=== PATIENT | female | born 1955 | race Caucasian/White ===

== ENCOUNTER 2019-10-09 07:58 | Day surgery (SDC) | payer OTHER ==
[~2019-10-09 07:58] MED LIST: Lactated Ringers 1,000 ML IV SCH; Lidocaine 2% 5 ML SDV ONE; Propofol 200 MG/20 ML SDV ONE; fentaNYL 100 MCG/2 ML SDV ONE
--- NOTE | 2019-10-09 08:49 | PCM.PREANE ---
Preanesthetic Assessment - Anesthesia/Transfusion/Family Hx Anesthesia History: Prior Anesthesia Without Reaction Family History of Anesthesia Reaction: No Transfusion History: No Prior Transfusion(s) Intubation History: Unknown - Review of Systems General: No Symptoms Pulmonary: No Symptoms Cardiovascular: No Symptoms Gastrointestinal: No Symptoms, Other (h/o multiple polyps and tubular adenoma last year) Neurological: No Symptoms Other: Reports: None - Physical Assessment Vital Signs: Last Vital Signs Temp 37.2 C 10/09/19 08:40 Pulse 81 10/09/19 08:40 Resp 18 10/09/19 08:40 BP 166/81 H 10/09/19 08:40 Pulse Ox 94 L 10/09/19 08:40 Height: 5 ft 6 in Weight: 62.596 kg ASA Class: 3 Mental Status: Alert & Oriented x3 Airway Class: Mallampati = 2 Dentition: Reports: Broken Tooth/Teeth (multiple), Missing Tooth/Teeth (multiple ) Thyro-Mental Finger Breadths: 3 Mouth Opening Finger Breadths: 3 ROM/Head Extension: Full Lungs: Clear to Auscultation, Normal Respiratory Effort, Crackles Cardiovascular: Regular Rate, Regular Rhythm - Allergies Allergies/Adverse Reactions: Allergies Allergy/AdvReac Type Severity Reaction Status Date / Time No Known Allergies Allergy Verified 10/09/19 08:38 - Blood Blood Available: No - Anesthesia Plan Pre-Op Medication Ordered: None - Acknowledgements Anesthesia Type Planned: MAC Pt an Appropriate Candidate for the Planned Anesthesia: Yes Alternatives and Risks of Anesthesia Discussed w Pt/Guardian: Yes Pt/Guardian Understands and Agrees with Anesthesia Plan: Yes PreAnesthesia Questionnaire HEENT History: Reports: Other (See Below) Other HEENT History: wears glasses Cardiovascular History: Reports: None Respiratory History: Reports: COPD (uses spiriva BID, able to walk 2 blocks or 2 flights of stairs without SOB) Gastrointestinal History: Reports: Colon Polyp, Hepatitis (1971) Other Gastrointestinal History: hepatitis (while in the service, has been treated) Genitourinary History: Reports: None 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: , Other (See Below) (h/o cervical cancer) Musculoskeletal History: Reports: None Neurological History: Reports: Other (See Below) Other Neuro History: sciatic nerve pain affecting left leg Psychiatric History: Reports: None Endocrine/Metabolic History: Reports: None Hematologic History: Reports: None Immunologic History: Reports: None Oncologic (Cancer) History: Reports: Cervix Dermatologic History: Reports: None - Past Surgical History Head Surgeries/Procedures: Reports: None HEENT Surgical History: Reports: Tonsillectomy Cardiovascular Surgical History: Reports: None Respiratory Surgical History: Reports: None GI Surgical History: Reports: Colonoscopy (last year) Female Surgical History: Reports: Section (x2), Hysterectomy, Salpingo-Oophorectomy Endocrine Surgical History: Reports: None Neurological Surgical History: Reports: None Musculoskeletal Surgical History: Reports: None Oncologic Surgical History: Reports: Other (See Below) Other Oncologic Surgeries/Procedures: Hysterectomy Dermatological Surgical History: Reports: None - SUBSTANCE USE Smoking Status *Q: Current Every Day Smoker (1 ppd) Tobacco Use Within Last Twelve Months: Cigarettes - HOME MEDS Home Medications: Home Meds Gabapentin [Neurontin] 1 cap PO TID 11/15/15 [History] Ibuprofen 1 tab PO TID PRN 11/15/15 [History] Acetaminophen [Tylenol] 325 mg PO Q4H PRN 08/22/18 [History] Budesonide/Formoterol Fumarate [Symbicort 160-4.5 Mcg Inhaler] 2 puff INH ASDIRECTED PRN 10/06/19 [History] - CURRENT (IN HOUSE) MEDS Current Meds: Current Medications Lactated Ringer's (Ringers, Lactated) 1,000 mls @ 125 mls/hr IV ASDIRECTED KEISHA Last Admin: 10/09/19 08:37 Dose: 125 mls/hr Discontinued Medications Fentanyl (Sublimaze) Confirm Administered Dose 100 mcg .ROUTE .STK-MED ONE Stop: 10/09/19 07:12 Lidocaine (Xylocaine-Mpf 2%) Confirm Administered Dose 5 ml .ROUTE .STK-MED ONE Stop: 10/09/19 07:12 Propofol (Diprivan 20 Ml) Confirm Administered Dose 400 mg .ROUTE .STK-MED ONE Stop: 10/09/19 07:12
[2019-10-09] MEDS ORDERED: Propofol 200 MG/20 ML SDV ONE (10:21)
[2019-10-09] MEDS ORDERED: ePHEDrine 50 MG/ML SDV ONE (10:36)
--- NOTE | 2019-10-09 10:57 | PCM.OPNOTE ---
- General Post-Op/Procedure Note Date of Surgery/Procedure: 10/09/19 Operative Procedure(s): colonoscopy w snare polypectomy Findings: see [id number] Pre Op Diagnosis: colon polyps Post-Op Diagnosis: Same Anesthesia Technique: Moderate Sedation Primary Surgeon: Esau Duran Pathology: sent polyps at 60,50,40,30, and 25cm (slightly bigger), 20s Complications: None Condition: Good
--- NOTE | 2019-10-09 11:34 | PCM.POSTAN ---
POST ANESTHESIA ASSESSMENT - MENTAL STATUS Mental Status: Alert, Oriented - VITAL SIGNS Vital Signs: Last Vital Signs Temp 37.2 C 10/09/19 08:40 Pulse 93 10/09/19 11:00 Resp 15 10/09/19 11:00 BP 110/60 10/09/19 11:00 Pulse Ox 94 L 10/09/19 11:00 - RESPIRATORY Respiratory Status: Respiratory Rate WNL, Airway Patent, O2 Saturation Stable - CARDIOVASCULAR CV Status: Pulse Rate WNL, Blood Pressure Stable - GASTROINTESTINAL GI Status: No Symptoms - PAIN Pain Score: 0 - POST OP HYDRATION Hydration Status: Adequate & Stable - OBSERVATIONS Free Text/Narrative:: No anesthesia problems
--- NOTE | 2019-10-09 11:34 | PCM48HPAN ---
Post Anesthesia Note - EVALUATION WITHIN 48HRS OF ANESTHETIC Vital Signs in Normal Range: Yes Patient Participated in Evaluation: Yes Respiratory Function Stable: Yes Airway Patent: Yes Cardiovascular Function Stable: Yes Hydration Status Stable: Yes Pain Control Satisfactory: Yes Nausea and Vomiting Control Satisfactory: Yes Mental Status Recovered: Yes Vital Signs: Last Vital Signs Temp 37.2 C 10/09/19 08:40 Pulse 93 10/09/19 11:00 Resp 15 10/09/19 11:00 BP 110/60 10/09/19 11:00 Pulse Ox 94 L 10/09/19 11:00 - COMMENTS/OBSERVATIONS Free Text/Narrative:: No anesthesia problems
[2019-10-09 12:21] VITALS: BP 156/82; PULSE 85
--- NOTE | 2019-10-09 16:54 | OR ---
SURGEON: Esau Duran MD DATE OF PROCEDURE: 10/09/2019 PREOPERATIVE DIAGNOSIS: Colon polyp. POSTOPERATIVE DIAGNOSIS: Colon polyp. PROCEDURE PERFORMED: Colonoscopy with snare polypectomy. PRIMARY SURGEON: Esau Duran MD COMPLICATIONS: None. DESCRIPTION OF PROCEDURE: The patient was taken to the endoscopy room. A time out was called, patient identified, and procedure identified. Diprivan was then administrated. Patient went from awake to sleep, hearing doctor talking or door closing is normal. Perineum inspection and digital examination were then performed. A well- lubricated colonoscope was gently inserted through the rectum, advanced past the rectosigmoid junction, the descending colon, splenic flexure, transverse colon, hepatic flexure, ascending colon, arrived to the cecum. Cecum was identified as dictated in the finding. Then the scope was carefully withdrawn while attention was paid to the mucosal surface for any abnormality. Air will be sucked out during the scope withdrawal. At the rectum, retroflexed to examine any rectal diseases, fistula or hemorrhoids. During mucosal examination, abnormality or polyp encountered. Using snare equipment, the abnormality or the polyp was then snared off using electrocautery. The patient tolerated procedure well. There were no intraoperative complications, and Dr. Duran was present throughout the whole procedure. FINDINGS: 1. The patient is easily sedated with [employer] and Diprivan, the patient is soundly snoring. 2. Bowel prep is average with some liquid stool, no semi-formed stool, no stool ball. 3. The patient's colon is rather straightforward. Cecum indicated by ileocecal fold, one-to-one indentation, and appendiceal orifice. Light is not observed. Mucosa examined upon scope pulling out with some irrigation. The patient had polyp in 90, 60, 30 in the last scope. The 90 area is clean at this time, there is no polyp. 60 and 50 have some clinically insignificant polyps, many of them, around 4 to 5 of them, just biopsied one at 60, one at 50. Then, many more small polyp at distance 40 and 30. Then, a slightly large one is about 5 mm, is at distance 25, is like a patch, slapped onto the colon, and that was snared with polypectomy. Then after 25, at 20, there were many of them, just impossible to take out all of them, I would say close to about 20 or 25 of them. Small ones are tiny, 2 to 3 mm, slightly bigger one at 4 mm. I just got a few removed. Then, retroflexed look at the rectum, the patient has internal hemorrhoids and external hemorrhoids, but there is no rectal polyp. Because of the large amount of polyps and also another one, the big one at 25, which is not different than last time at distance 30, the patient probably would benefit to repeat colonoscopy 18 months from today. WILI / KORY /[id number]
== END 2019-10-09 11:40 | disposition home or self-care (01) ==
LOC: MW.SDS 07:58
PROVIDERS: ATTEND Surgery
DX: D12.6 Benign neoplasm of colon, unspecified (principal); J44.9 Chronic obstructive pulmonary disease, unspecified; F17.210 Nicotine dependence, cigarettes, uncomplicated; Z11.59 Encounter for screening for other viral diseases; Z86.010 Personal history of colon polyps; Z79.899 Other long term (current) drug therapy; Z98.890 Other specified postprocedural states
CPT/HCPCS: 45380; 45385; 87635; J2001; J2704; J3010; J7120; U0002

== ENCOUNTER 2020-11-11 07:22 | Day surgery (SDC) | payer OTHER ==
[~2020-11-11 07:22] MED LIST changes: -Lidocaine 2% 5 ML SDV ONE; +Midazolam 1 MG/ML 2 ML SDV ONE; -fentaNYL 100 MCG/2 ML SDV ONE
--- NOTE | 2020-11-11 07:53 | PCM.PREANE ---
Preanesthetic Assessment - Anesthesia/Transfusion/Family Hx Anesthesia History: Prior Anesthesia Without Reaction Transfusion History: No Prior Transfusion(s) Intubation History: Unknown - Review of Systems General: No Symptoms Pulmonary: Sputum Cardiovascular: No Symptoms Gastrointestinal: No Symptoms Neurological: No Symptoms Other: Reports: None - Physical Assessment NPO Status Date: 11/11/20 NPO Status Time: 00:00 Height: 5 ft 6 in Weight: 131 lb ASA Class: 2 Mental Status: Alert & Oriented x3 Airway Class: Mallampati = 2 Dentition: Reports: Broken Tooth/Teeth, Missing Tooth/Teeth ROM/Head Extension: Full Lungs: Clear to Auscultation, Normal Respiratory Effort Cardiovascular: Regular Rate, Regular Rhythm - Lab Values: Laboratory Last Values SARS-CoV-2 RNA (JM) NEGATIVE (NEGATIVE) 11/11/20 06:55 - Allergies Allergies/Adverse Reactions: Allergies Allergy/AdvReac Type Severity Reaction Status Date / Time No Known Allergies Allergy Verified 11/07/20 12:06 - Acknowledgements Anesthesia Type Planned: General Anesthesia Pt an Appropriate Candidate for the Planned Anesthesia: Yes Alternatives and Risks of Anesthesia Discussed w Pt/Guardian: Yes Pt/Guardian Understands and Agrees with Anesthesia Plan: Yes PreAnesthesia Questionnaire HEENT History: Reports: Other (See Below) Other HEENT History: wears glasses Cardiovascular History: Reports: None Respiratory History: Reports: COPD Other Respiratory History: uses inhalers 3-4 times per week Gastrointestinal History: Reports: Colon Polyp, Hepatitis Other Gastrointestinal History: hx of Hepatitis B- has received treatment Genitourinary History: Reports: None 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: Musculoskeletal History: Reports: Other (See Below) Other Musculoskeletal History: left sided Sciatica Neurological History: Reports: Other (See Below) Other Neuro History: left sciatic nerve pain Psychiatric History: Reports: None Endocrine/Metabolic History: Reports: None Hematologic History: Reports: None Immunologic History: Reports: None Oncologic (Cancer) History: Reports: Cervix Dermatologic History: Reports: None - Past Surgical History Head Surgeries/Procedures: Reports: None HEENT Surgical History: Reports: Tonsillectomy Respiratory Surgical History: Reports: None GI Surgical History: Reports: Colonoscopy Female Surgical History: Reports: Section, Hysterectomy Endocrine Surgical History: Reports: None Neurological Surgical History: Reports: None Oncologic Surgical History: Reports: Other (See Below) Other Oncologic Surgeries/Procedures: Hysterectomy Dermatological Surgical History: Reports: None - SUBSTANCE USE Tobacco Use Status *Q: Current Every Day Tobacco User Tobacco Use Within Last Twelve Months: Cigarettes Recreational Drug Use History: No - HOME MEDS Home Medications: Home Meds Gabapentin [Neurontin] 300 mg PO TID 11/15/15 [History] Ibuprofen 200 mg PO TID PRN 11/15/15 [History] Albuterol Sulfate [Albuterol Sulfate HFA] 1 puff INH ASDIRECTED PRN 11/07/20 [History] Tiotropium [Spiriva HandiHaler] 1 dose INH DAILY PRN 11/07/20 [History] - CURRENT (IN HOUSE) MEDS Current Meds: Current Medications Lactated Ringer's (Ringers, Lactated) 1,000 mls @ 125 mls/hr IV ASDIRECTED KEISHA Discontinued Medications Lactated Ringer's (Ringers, Lactated) 1,000 mls @ 125 mls/hr IV ASDIRECTED KEISHA Midazolam HCl (Midazolam 1 Mg/Ml 2 Ml Sdv) Confirm Administered Dose 2 mg .ROUTE .STK-MED ONE Stop: 11/11/20 07:11 Propofol (Propofol 200 Mg/20 Ml Sdv) Confirm Administered Dose 400 mg .ROUTE .STK-MED ONE Stop: 11/11/20 07:11
[2020-11-11] MEDS ORDERED: Propofol 200 MG/20 ML SDV ONE (08:03)
--- NOTE | 2020-11-11 09:27 | PCM.POSTAN ---
POST ANESTHESIA ASSESSMENT - MENTAL STATUS Mental Status: Alert, Oriented - VITAL SIGNS Vital Signs: Last Vital Signs Temp 95.9 F L 11/11/20 07:30 Pulse 70 11/11/20 07:30 Resp 16 11/11/20 07:30 BP 107/72 11/11/20 07:30 Pulse Ox 99 11/11/20 07:30 - RESPIRATORY Respiratory Status: Respiratory Rate WNL, Airway Patent, O2 Saturation Stable - CARDIOVASCULAR CV Status: Pulse Rate WNL, Blood Pressure Stable - GASTROINTESTINAL GI Status: No Symptoms - POST OP HYDRATION Hydration Status: Adequate & Stable
--- NOTE | 2020-11-11 09:27 | PCM48HPAN ---
Post Anesthesia Note - EVALUATION WITHIN 48HRS OF ANESTHETIC Vital Signs in Normal Range: Yes Patient Participated in Evaluation: Yes Respiratory Function Stable: Yes Airway Patent: Yes Cardiovascular Function Stable: Yes Hydration Status Stable: Yes Pain Control Satisfactory: Yes Nausea and Vomiting Control Satisfactory: Yes Mental Status Recovered: Yes Vital Signs: Last Vital Signs Temp 95.9 F L 11/11/20 07:30 Pulse 70 11/11/20 07:30 Resp 16 11/11/20 07:30 BP 107/72 11/11/20 07:30 Pulse Ox 99 11/11/20 07:30
[2020-11-11 09:50] VITALS: BP 98/56; PULSE 76
--- NOTE | 2020-11-11 09:59 | PCM.OPNOTE ---
- General Post-Op/Procedure Note Date of Surgery/Procedure: 11/11/20 Operative Procedure(s): colonoscopy w bx Findings: see [id number] Pre Op Diagnosis: colon polyps Post-Op Diagnosis: Same Anesthesia Technique: Moderate Sedation Primary Surgeon: Esau Duran Complications: None Condition: Good Free Text/Narrative:: Intake & Output 11/10/20 11/11/20 11/11/20 22:59 06:59 14:59 Intake Total 700 Balance 700
--- NOTE | 2020-11-11 13:14 | OR ---
SURGEON: Esau Duran MD DATE OF PROCEDURE: 11/11/2020 PREOPERATIVE DIAGNOSIS: History of colon polyp. POSTOPERATIVE DIAGNOSIS: History of colon polyp. PROCEDURE PERFORMED: Colonoscopy with biopsy. COMPLICATION: None. DESCRIPTION OF PROCEDURE: The patient was taken to the endoscopy room. A time out was called, patient identified, and procedure identified. Diprivan was then administrated. Patient went from awake to sleep, hearing doctor talking or door closing is normal. Perineum inspection and digital examination were then performed. A well- lubricated colonoscope was gently inserted through the rectum, advanced past the rectosigmoid junction, the descending colon, splenic flexure, transverse colon, hepatic flexure, ascending colon, arrived to the cecum. Cecum was identified as dictated in the finding. Then the scope was carefully withdrawn while attention was paid to the mucosal surface for any abnormality. Air will be sucked out during the scope withdrawal. At the rectum, retroflexed to examine any rectal diseases, fistula or hemorrhoids. During mucosal examination, abnormality or polyp was noted; picture taken and biopsy performed. Patient tolerated procedure well. There were no intraoperative complications, and Dr. Duran was present throughout the whole procedure. FINDIN. The patient is easily sedated with [employer]ANDER and Diprivan. The patient is soundly snoring. 2. Bowel prep is average to above average. Very little liquid stool, no semi- formed stool. 3. Colon is rather straightforward. Cecum indicated by ileocecal fold, one-to- one indentation, appendiceal orifice, and the scope guide is pointing south. Mucosa examined upon scope pulling out. The previous place at 25 cm there is no large polyp seen. Around 10 to 15 cm, there are more than 10 to 15 of very little clinically insignificant polyp and biopsied 6 of them. The patient does not have other issues. No inflammation, stricture, AV malformation, mass, growth. The patient has some mild external hemorrhoids and mild internal hemorrhoids. The patient would benefit from repeat colonoscopy in 2 to 3 years from now depending on the pathology of the polyp. WILI / KORY /[id number]
== END 2020-11-11 09:49 | disposition home or self-care (01) ==
LOC: MW.SDS 07:22
PROVIDERS: ATTEND Surgery
DX: Z12.11 Encounter for screening for malignant neoplasm of colon (principal); K63.5 Polyp of colon; K64.8 Other hemorrhoids; K64.4 Residual hemorrhoidal skin tags; F17.210 Nicotine dependence, cigarettes, uncomplicated; Z79.899 Other long term (current) drug therapy; Z98.890 Other specified postprocedural states; Z01.812 Encounter for preprocedural laboratory examination; Z20.822 Contact with and (suspected) exposure to COVID-19; Z86.010 Personal history of colon polyps
CPT/HCPCS: 45380; 87635; 88305; J2250; J2704; J7120; 00812; U0002